=== PATIENT | female | born 1970 | race Caucasian/White ===

== ENCOUNTER 2018-08-13 17:16 | Emergency (ER) | payer BC, MEDICAID ==
[~2018-08-13] VITALS: Ht 157.5 cm; Wt 67.0 kg
[2018-08-13 17:20] VITALS: Ht 157.5 cm; Wt 67.0 kg
[2018-08-13] MEDS ORDERED: PHEN-537 PO (23:29)
[2018-08-13] MEDS ORDERED: FLUT9.9S NASAL (23:29)
[2018-08-13] MEDS ORDERED: ALBU18HF INHALATION (23:29)
[2018-08-13] MEDS ORDERED: BENZ200C68 PO (23:29)
[2018-08-13] MEDS ORDERED: AZIT250T PO (23:29)
[2018-08-14 00:25] VITALS: BP 162/88; PULSE 73; RESP 18
--- NOTE | 2018-08-14 04:56 | ERD ---
ER Documentation Chief Complaint Chief Complaint cough with fever x 3 days; pain on urination today HPI Patient is a 48-year-old female with no significant medical history presenting to the emergency department complaining of intermittent dysuria for the past 1 day. Patient has history of similar symptoms in the past. She took no medication for relief of symptoms. Additionally the patient reports some cough and body aches for the past 3 days. She denies any other symptoms at this time. ROS All systems reviewed and are negative except as per history of present illness. Medications Home Meds Active Scripts Fluticasone Propionate (Flonase Allergy Relief) 9.9 Ml [place].susp, 1 SPRAY NASAL BID, #1 BOTTLE TO EACH NOSTRIL Prov:EMMY HEREDIA PA-C 08/13/18 Albuterol Sulfate* (Ventolin HFA*) 18 Gm Hfa.aer.ad, 2 PUFF INHALATION Q4H, #1 INHALER Prov:EMMY HEREDIA PA-C 08/13/18 Azithromycin* (Zithromax*) 250 Mg Tablet, 250 MG PO .BrookePACK DIRECTED, #6 TAB TAKE 500 MG (2 TABS) THE FIRST DAY THEN 250 MG (1 TAB) DAYS 2-5 Prov:EMMY HEREDIA PA-C 08/13/18 Benzonatate* (Benzonatate*) 200 Mg Capsule, 200 MG PO TID PRN for COUGH, #15 CAP Prov:EMMY HEREDIA PA-C 08/13/18 Phenazopyridine Hcl* (Pyridium*) 100 Mg Tab, 100 MG PO TID PRN for URINARY PAIN, #8 TAB Prov:EMMY HEREDIA PA-C 08/13/18 PMhx/Soc Medical and Surgical Hx: pt denies Medical Hx, pt denies Surgical Hx Hx Alcohol Use: No Hx Substance Use: No Hx Tobacco Use: No Smoking Status: Never smoker FmHx Family History: No diabetes Physical Exam Vitals Vital Signs Date Temp Pulse Resp B/P (MAP) Pulse Ox O2 O2 Flow FiO2 Time Delivery Rate 08/14/18 97.8 73 18 162/88 100 Room Air 00:25 (112) 08/13/18 99.0 94 20 171/87 98 17:20 (115) Physical Exam Const: No acute distress Head: Atraumatic Eyes: Normal Conjunctiva ENT: Normal External Ears, Nose and Mouth. Neck: Full range of motion. No meningismus. Resp: Clear to auscultation bilaterally Cardio: Regular rate and rhythm, no murmurs Skin: No petechiae or rashes Back: No midline or flank tenderness Ext: No cyanosis, or edema Neur: Awake and alert Psych: Normal Mood and Affect Results 24 hrs Laboratory Tests Test 08/13/18 22:55 08/13/18 22:56 Bedside Urine pH (LAB) 6.5 Bedside Urine Protein (LAB) Negative Bedside Urine Glucose (UA) Negative Bedside Urine Ketones (LAB) Negative Bedside Urine Blood Trace-lysed Bedside Urine Nitrite (LAB) Negative Bedside Urine Leukocyte Esterase (L Negative POC Beta HCG, Qualitative NEGATIVE Procedures/MDM Patient is a 48-year-old female presenting to the emergency department with signs and symptoms most consistent with acute bronchitis, possible bacterial etiology as well as dysuria. The patient did not have evidence of urinary tract infection. Patient is stable and appropriate for discharge and further treatment as an outpatient. Patient is advised to follow-up with her primary care physician and return to the department immediately for any new or worsening symptoms. No evidence to suggest pyelonephritis, sepsis, or other emergencies. The patient agreed with the diagnosis, plan, need for follow-up, return precautions. Patient's blood pressure was elevated (>120/80) but appears stable without evidence of hypertension emergency or urgency. The patient is to follow-up and pursue outpatient monitoring and therapy with their primary care physician within 1 week and return immediately if they have any new, worsening, or concerning symptoms. Disclaimer: Inadvertent spelling and grammatical errors are likely due to EHR/ dictation software use and do not reflect on the overall quality of patient care. Also, please note that the electronic time recorded on this note does not necessarily reflect the actual time of the patient encounter. Departure Diagnosis: Primary Impression: Acute bronchitis Bronchitis organism: unspecified organism Qualified Codes: J20.9 - Acute bronchitis, unspecified Additional Impression: Dysuria Condition: Fair Patient Instructions: Dysuria, Bronchitis, Antiobiotic Treatment (Adult) Additional Instructions: Call your primary care doctor TOMORROW for an appointment during the next 1-2 days.See the doctor sooner or return here if your condition worsens before your appointment time. EMMY HEREDIA PA-C Aug 14, 2018 04:56
== END 2018-08-13 23:57 | disposition home or self-care (01) ==
LOC: FTE 17:16
DX: J20.9 Acute bronchitis, unspecified (principal); R30.0 Dysuria
CPT/HCPCS: 81003; 81025; Z7502; 99283